=== PATIENT | male | born 1990 | race Hispanic/Latino ===

== ENCOUNTER 2019-09-06 02:43 | Emergency (ER) | payer SELFPAY ==
[2019-09-06 03:00] VITALS: BP 125/81
--- NOTE | 2019-09-06 04:05 | Emergency Department Report ---
- General Chief Complaint: Upper Respiratory Infection Stated Complaint: FLU SYMPTOMS Time Seen by Provider: 09/06/19 03:46 Source: patient Mode of arrival: Ambulatory Limitations: No Limitations - History of Present Illness Initial Comments: Patient is a 29-year-old male that presents to the Emergency room with complaints of cough, body aches, headache, nasal congestion. Patient states his symptoms have been going on for 2 days. Patient states his symptoms are actually improving. Patient states he cames emergency room to be checked out. Patient denies fever. Patient denies chills. Patient denies productive cough. Patient states his cough is dry. Patient denies chest pain. Patient denies shortness of breath. Patient states he smokes. Patient denies past medical history. MD Complaint: cough, rhinorrhea, nasal congestion -: Sudden Consistency: other (improving) Improves With: NSAID, OTC cold medicine Worsens With: nothing Associated Symptoms: headache, rhinorrhea, nasal congestion, cough. denies: diaphoresis, sore throat, stiff neck, chest pain, shortness of breath, abdominal pain, nausea, vomiting, diarrhea, dysuria, rash, confusion, right sweats, weight loss, epistaxis, hoarseness, ear pain ED Review of Systems ROS: Stated complaint: FLU SYMPTOMS Other details as noted in HPI Constitutional: denies: chills, fever Eyes: denies: eye pain, eye discharge, vision change ENT: denies: ear pain, throat pain Respiratory: cough. denies: shortness of breath, wheezing Cardiovascular: denies: chest pain, palpitations Endocrine: no symptoms reported Gastrointestinal: denies: abdominal pain, nausea, diarrhea Genitourinary: denies: urgency, dysuria Musculoskeletal: denies: back pain, joint swelling, arthralgia Skin: denies: rash, lesions Neurological: headache. denies: weakness, paresthesias Psychiatric: denies: anxiety, depression Hematological/Lymphatic: denies: easy bleeding, easy bruising ED Past Medical Hx - Past Medical History Previous Medical History?: No - Surgical History Past Surgical History?: No - Family History Family history: no significant - Social History Smoking Status: Current Every Day Smoker Substance Use Type: Alcohol, Marijuana ED Physical Exam - General Limitations: No Limitations General appearance: alert, in no apparent distress - Head Head exam: Present: atraumatic, normocephalic - Eye Eye exam: Present: normal appearance - ENT ENT exam: Present: mucous membranes moist, TM's normal bilaterally, normal external ear exam - Expanded ENT Exam Expanded Ear exam: Present: normal external inspection Mouth exam: Present: normal external inspection. Absent: drooling, trismus, muffled voice Throat exam: Positive: other (mild erythema no exudate noted. No tonsillar enlargement.) - Neck Neck exam: Present: normal inspection - Respiratory Respiratory exam: Present: normal lung sounds bilaterally. Absent: respiratory distress, wheezes, rales - Cardiovascular Cardiovascular Exam: Present: regular rate, normal rhythm. Absent: systolic murmur, diastolic murmur, rubs, gallop - GI/Abdominal GI/Abdominal exam: Present: soft, normal bowel sounds. Absent: distended, tenderness, guarding - Rectal Rectal exam: Present: deferred - Extremities Exam Extremities exam: Present: normal inspection - Back Exam Back exam: Present: normal inspection - Neurological Exam Neurological exam: Present: alert, oriented X3 - Psychiatric Psychiatric exam: Present: normal affect, normal mood - Skin Skin exam: Present: warm, dry, intact, normal color. Absent: rash ED Course Vital Signs 09/06/19 02:55 Temperature 98.1 F Pulse Rate 119 H Respiratory 15 Rate Blood Pressure 125/81 O2 Sat by Pulse 98 Oximetry - Reevaluation(s) Reevaluation #1: Initial evaluation done. Patient's current heart rate is 90. I discussed clinical findings the patient. I discussed with the patient does not have an emergency medical condition and the patient is going to be referred to registration for an urgent care visit. Patient states she does not want to pay. Patient given community resources. 09/06/19 03:58 ED Medical Decision Making - Medical Decision Making Patient is a 29-year-old male presents emergency with upper respiratory infection. Patient's respiratory infection is viral in nature. Patient's vital signs are essentially normal except for elevated heart rate. Patient is afebrile. Patient given treatment for a upper respiratory virus. Patient referred to registration since patient's condition is nonemergent medical condition and patient has had an MSE exam. Patient opted out as an MSE- left. Patient still given discharge instructions. Patient given referral and community resources. - Differential Diagnosis uri. viral infection. Critical care attestation.: If time is entered above; I have spent that time in minutes in the direct care of this critically ill patient, excluding procedure time. ED Disposition Clinical Impression: URI (upper respiratory infection) Qualifiers: URI type: unspecified viral URI Qualified Code(s): J06.9 - Acute upper respiratory infection, unspecified Disposition: MED SCREENING EXAM-LEFT Is pt being admited?: No Does the pt Need Aspirin: No Condition: Stable Instructions: Upper Respiratory Infection (ED) Additional Instructions: Patient to follow up with primary care in 2-3 days. Patient to return to ER if condition worsens or symptoms change or new symptoms arise.. Patient to take Tylenol or Frova when necessary for pain or fever. Patient to rest. Patient to take [id number] cold and flu medications. Patient to increase water. Referrals: PRIMARY CARE, [Primary Care Provider] - 2-3 Days [facility] [Provider Group] - 2-3 Days Time of Disposition: :07
== END 2019-09-06 04:17 | disposition left against medical advice (07) ==
LOC: ED 02:43
DX: J06.9 Acute upper respiratory infection, unspecified (principal); F17.200 Nicotine dependence, unspecified, uncomplicated; F12.10 Cannabis abuse, uncomplicated
CPT/HCPCS: 99282